=== PATIENT | female | born 1965 | race Caucasian/White ===

== ENCOUNTER 2021-03-22 14:25 | Emergency (ER) | payer OTHER ==
[2021-03-22 16:08] LABS: BASOPHIL 0.1 % (0-2); EOSINOPHIL 0 % (0-5); HCT 35.4 % (37.0-47.0); HGB 11.4 g/dl (12.5-16.0); LYMPHOCYTE 10.1 % (15-48); MCH 27.7 pg (25.0-31.0); MCHC 32.2 g/dL (32.0-36.0); MCV 86.1 fL (78.0-100.0); MONOCYTE 4.3 % (0-12); MPV 8.8 fL (6.0-9.5); NEUTROPHIL 84.7 % (41-80); NRBC 0; PLT 442 K/uL (150-400); RBC 4.11 M/uL (4.20-5.40); RDW 14.8 % (11.5-14.0); WBC 13.1 K/uL (4.0-10.5)
[2021-03-22 16:30] LABS: BILIRUBIN - TOTAL 0.2 mg/dL (0.2-1.0); BUN/CREAT RATIO (CALC) 20.6 RATIO; CREATININE 0.63 mg/dL (0.51-0.95); GLOBULIN (CALCULATION) 4.6 g/dL; POTASSIUM 4.3 mmol/L (3.5-5.1); TOTAL PROTEIN 7.6 g/dL (6.4-8.2)
[2021-03-22 17:41] LABS: PRO-BNP 808 pg/mL (<125)
== END 2021-03-22 18:25 | disposition home or self-care (01) ==
LOC: FER 14:25
PROVIDERS: Emergency Medicine Emergency Medical Services
DX: J44.1 Chronic obstructive pulmonary disease with (acute) exacerbation (principal); J18.9 Pneumonia, unspecified organism; Z88.1 Allergy status to other antibiotic agents; Z20.822 Contact with and (suspected) exposure to COVID-19
CPT/HCPCS: 36415; 36600; 71045; 71275; 80053; 82803; 83880; 84145; 84484; 85025; 85379; 93005; 94640; 94664; J0696; J2930; U0002